=== PATIENT | male | born 1960 | race Caucasian/White ===

== ENCOUNTER → 2020-06-13 14:05 | Outpatient (BNVA) | payer MEDICARE, OTHER, SELFPAY | PROVIDERS: Referring Provider Family Medicine; Visit Provider Podiatrist Foot & Ankle Surgery | DX: M79.671 Pain in right foot (principal) | CPT/HCPCS: 73630 ==

== ENCOUNTER 2020-07-23 15:11 | Outpatient (CLI) | payer MEDICARE, OTHER, SELFPAY | END 2020-07-23 15:12 | disposition home or self-care (01) | LOC: SPT 15:14 | PROVIDERS: Visit Provider Podiatrist Foot & Ankle Surgery | DX: Z46.89 Encounter for fitting and adjustment of other specified devices (principal); M67.471 Ganglion, right ankle and foot | CPT/HCPCS: 97760; L3030 ==